=== PATIENT | female | born 1955 | race Caucasian/White ===

== ENCOUNTER 2019-02-11 08:31 | Emergency (ER) | payer BC, MEDICAID ==
[2019-02-11] MEDS ORDERED: CLINDAMYCIN 600MG/50ML PREMIX 600 MG/50 ML BAG IVPB ONE (09:28)
--- NOTE | 2019-02-11 09:30 | Emergency Department Record ---
History of Present Illness - General Chief complaint: Dental Stated complaint: FACIAL SWELLING Time Seen by Provider: 02/11/19 09:25 Source: Patient Mode of Arrival: Ambulatory Limitations: No limitations - History of Present Illness Initial comments: The patient is here due to L facial swelling for 2 days. She has had pain to the L upper molar area for the last 5 days. She did see her Dentist yesterday who started her on Clindamycin but did send her here for IV Abx's. complaint: Tooth pain Onset/Timin -: Days(s) Location: Tooth # Severity scale (1-10): 8 Consistency: Constant Improves with: None Worsens with: None Context- Dental: Other Associated Symptoms: Cough - Related Data Previous Rx's Medication Instructions Recorded Fluticasone Propionate [Flonase] 2 spray EACH NARES DAILY #1 bottle 05/05/15 Allergies Allergy/AdvReac Type Severity Reaction Status Date / Time penicillin V Allergy SWELLING Verified 02/11/19 08:53 OF THE FACE Travel Screening - Travel/Exposure Within Last 30 Days Have you traveled within the last 30 days?: No - Travel/Exposure Within Last Year Have you traveled outside the [place] in the last year?: No - Additonal Travel Details Have you been exposed to anyone with a communicable illness?: No - Travel Symptoms Symptom Screening: None Review of Systems Constitutional: Denies: Chills, Fever Eyes: Denies: Eye discharge ENT: Denies: Congestion Respiratory: Denies: Cough, Dyspnea Past Medical History - SOCIAL HISTORY Smoking Status: Current every day smoker Alcohol Use: Occasional Drug Use: Occasional Drug Use Detail:: Marijuana - RESPIRATORY Hx Respiratory Disorders: No - CARDIOVASCULAR Hx Cardio Disorders: Yes Hx Irregular Heartbeat: Yes - NEURO Hx Neuro Disorders: No - GI Hx GI Disorders: No - Hx Genitourinary Disorders: No - ENDOCRINE Hx Endocrine Disorders: No - MUSCULOSKELETAL Hx Musculoskeletal Disorders: Yes Hx Arthritis: Yes - PSYCH Hx Psych Problems: No - HEMATOLOGY/ONCOLOGY Hx Hematology/Oncology Disorders: No Family Medical History Any Significant Family History?: No Physical Exam - General General Appearance: Alert, Oriented x3, Cooperative, No acute distress - Head Head exam: Atraumatic, Normocephalic, Normal inspection Image of Face/Head: 1 - Area of pain and swelling and tenderness. - Eye Eye exam: Normal appearance, PERRL - ENT ENT exam: negative: Normal exam Teeth exam: Dental tenderness # (14, and 15.). negative: Normal inspection Throat exam: Normal inspection. negative: Tonsillar erythema, Tonsillar exudate - Neck Neck exam: Normal inspection, Full ROM. negative: Lymphadenopathy, Meningismus, Tenderness - Respiratory Respiratory exam: Normal lung sounds bilaterally. negative: Respiratory distress - Cardiovascular Cardiovascular Exam: Regular rate, Normal rhythm, Normal heart sounds - GI/Abdominal GI/Abdominal exam: Soft, Normal bowel sounds. negative: Tenderness - Extremities Extremities exam: Normal inspection, Full ROM, Normal capillary refill. negative: Tenderness - Neurological Neurological exam: Alert, Normal gait, Oriented X3. negative: Abnormal gait, Motor sensory deficit - Skin Skin exam: negative: Rash Course Vital Signs 02/11/19 08:44 Temperature 98.8 F Pulse Rate 75 Respiratory 16 Rate Blood Pressure 169/97 Pulse Ox 99 - Reevaluation(s) Reevaluation #1: The patient is doing well at this time. I did get her an appointment with Dr. yAon (oral surgery) in [facility]. She is to proceed to the dental office after discharge here. 02/11/19 10:11 Medical Decision Making - Lab Data Result diagrams: 02/11/19 08:50 02/11/19 08:50 Disposition Disposition: Discharge Clinical Impression: Abscess, dental Disposition: Home, Self-Care Condition: (2) Stable Instructions: Dental Abscess (ED) Additional Instructions: Please continue your Clindamycin and proceed over to Dr. Ayon's office in [place]. Forms: Patient Portal Access Time of Disposition: 10:09 Quality - Quality Measures Quality Measures: N/A - Blood Pressure Screening View Details: Yes Does Patient Have Any of the Following: No Blood Pressure Classification: Hypertensive Reading Systolic Measurement: 169 Diastolic Measurement: 97 Screening for High Blood Pressure: < First Hypertensive BP, F/U Documented > [[id number]] First Hypertensive Follow-up Interventions: Referral to alternative/primary care provider.
[2019-02-11 09:39] LABS: ABSOLUTE NEUTROPHIL COUNT 9.35; BASO % 0.5 % (0-6); EOS % 1.2 % (0-6); GRAN % 63.8 % (47-80); HEMATOCRIT 42.5 % (35.0-47.0); HEMOGLOBIN 14.7 gm/dl (11.6-16.0); LYMPH % 21.2 % (16-45); MEAN CELL VOLUME 92.8 fl (81-97); MEAN CORPUSCULAR HEMOGLOBIN 32.1 pg (27-33); MEAN CORPUSCULAR HGB CONC 34.6 g/dl (32-36); MEAN PLATELET VOLUME 10.5 fl (7.4-10.4); MONO % 13.3 % (0-9); PLATELET COUNT 340 K/uL (130-400); RED BLOOD COUNT 4.58 M/uL (3.80-5.40); RED CELL DISTRIBUTION WIDTH 14.1 % (11.5-14.5); WHITE BLOOD COUNT W/O DIFF 14.7 K/uL (4.2-12.2)
[2019-02-11 09:51] LABS: BLOOD UREA NITROGEN 10 mg/dL (8-23); CREATININE 0.7 mg/dL (0.5-0.9); EST GLOMERULAR FILTRATION RATE > 60 mL/min
[2019-02-11 09:54] LABS: GLUCOSE,RANDOM 122 mg/dL (74-109)
== END 2019-02-11 10:17 | disposition home or self-care (01) ==
LOC: ER 08:31
DX: K04.7 Periapical abscess without sinus (principal); R05 Cough; F17.210 Nicotine dependence, cigarettes, uncomplicated
CPT/HCPCS: 80048; 85025; 96374; 99284